=== PATIENT | female | born 1985 | race Caucasian/White ===

== ENCOUNTER 2016-11-03 15:30 | Inpatient (IN) | payer OTHER ==
[~2016-11-03] VITALS: Ht 172.7 cm; Wt 117.8 kg
[2016-11-03] MEDS ORDERED: ONDANSETRON 4 MG VIAL ONE (21:37)
[2016-11-03] MEDS ORDERED: SODIUM CHLORIDE 0.9% 1,000 ML ONE (21:38)
[2016-11-03] MEDS ORDERED: MORPHINE 4 MG/ML SYR ONE (21:38)
[2016-11-04] MEDS ORDERED: DILAUDID 1 MG/ML AMP ONE ×2 (00:34→04:19)
[2016-11-04] MEDS ORDERED: SODIUM CHLORIDE 0.9% 100 ML IV ONE (00:42)
[2016-11-04] MEDS ORDERED: SODIUM CHLORIDE 0.9% 1,000 ML ONE (00:42)
[2016-11-04] MEDS ORDERED: CEFTRIAXONE 1 GM VIAL ONE (00:42)
[2016-11-04] MEDS ORDERED: CEFOXITIN 2,000 MG in SODIUM CHLORIDE 0.9% 100 ML IV ONE (01:00)
[2016-11-04] MEDS ORDERED: PHARMACY TO DOSE GENTAMICIN IV SCH (02:50)
[2016-11-04] MEDS ORDERED: ONDANSETRON 4 MG VIAL IV PUSH PRN (02:50)
[2016-11-04] MEDS ORDERED: AMPICILLIN 2,000 MG in SODIUM CHLORIDE 0.9% 100 ML IV SCH (04:00)
[2016-11-04] MEDS ORDERED: [UNRECOGNIZED DRUG - REMARK] XX SCH (04:30)
[2016-11-04 05:02] VITALS: BP_SYST 128; BP_SYST 130; RESP 18; TEMP 98.7
[2016-11-04 05:04] VITALS: BMI 39.5
[2016-11-04] MEDS ORDERED: GENTAMICIN 430 MG in SODIUM CHLORIDE 0.9% 100 ML IV ONE (05:10)
[2016-11-04] MEDS: LACT RINGERS 1,000 ML IV SCH ×2 (05:35→23:38)
[2016-11-04] MEDS: DILAUDID 1 MG/ML AMP IV PRN ×2 (06:46→10:04)
[2016-11-04 07:21] VITALS: BP_SYST 121; RESP 16; TEMP 99.3
[2016-11-04] MEDS: CLINDAMYCIN 900 MG in DEXTROSE 5% 50 ML IV SCH ×3 (08:28→23:34)
[2016-11-04] MEDS: ACETAMINOPHEN 325 MG TAB PO PRN ×2 (08:32→16:17)
[2016-11-04] MEDS ORDERED: KETOROLAC 30 MG/ML VIAL IV PRN (10:55)
[2016-11-04 11:03] VITALS: BP_SYST 129; RESP 20; TEMP 99.1
[2016-11-04] MEDS ORDERED: MISSING DOSE XX ONE (12:10)
[2016-11-04] MEDS: AMPICILLIN 2,000 MG in SODIUM CHLORIDE 0.9% 100 ML IV SCH ×2 (12:34→18:35)
[2016-11-04] MEDS: KETOROLAC 30 MG/ML VIAL IV PRN ×2 (12:52→19:01)
[2016-11-04 15:22] VITALS: BP_SYST 125; RESP 16; TEMP 99
[2016-11-04 20:02] VITALS: BP_SYST 135; RESP 18; TEMP 99
[2016-11-04 22:43] VITALS: BP_SYST 136; RESP 18; TEMP 100.1
[2016-11-05] VITALS (7 sets, daily range): BP systolic 108–133; RESP 16–20; TEMP 98.3–100.8
[2016-11-05] MEDS: AMPICILLIN 2,000 MG in SODIUM CHLORIDE 0.9% 100 ML IV SCH ×4 (01:03→18:01)
[2016-11-05] MEDS: KETOROLAC 30 MG/ML VIAL IV PRN ×3 (04:48→23:15)
[2016-11-05] MEDS: GENTAMICIN 430 MG in SODIUM CHLORIDE 0.9% 100 ML IV SCH (07:38)
[2016-11-05] MEDS: CLINDAMYCIN 900 MG in DEXTROSE 5% 50 ML IV SCH ×3 (09:19→23:15)
[2016-11-05] MEDS ORDERED: MISSING DOSE XX ONE (15:25)
[2016-11-05] MEDS: DOCUSATE SOD 100 MG CAP PO SCH (19:44)
[2016-11-05] MEDS: SACCHA BOULARDII 250MG CAP PO SCH (19:44)
[2016-11-05] MEDS: LACT RINGERS 1,000 ML IV SCH (20:47)
[2016-11-06] MEDS: AMPICILLIN 2,000 MG in SODIUM CHLORIDE 0.9% 100 ML IV SCH ×3 (00:24→12:00)
[2016-11-06 03:27] VITALS: BP_SYST 131; RESP 16; TEMP 97.9
[2016-11-06] MEDS: GENTAMICIN 430 MG in SODIUM CHLORIDE 0.9% 100 ML IV SCH (06:47)
[2016-11-06 07:06] VITALS: BP_SYST 125; RESP 16; TEMP 98
[2016-11-06] MEDS: CLINDAMYCIN 900 MG in DEXTROSE 5% 50 ML IV SCH (09:48)
[2016-11-06] MEDS: SACCHA BOULARDII 250MG CAP PO SCH (09:48)
[2016-11-06] MEDS: DOCUSATE SOD 100 MG CAP PO SCH (09:48)
[2016-11-06 11:01] VITALS: BP_SYST 132; RESP 20; TEMP 98.1
[2016-11-06 14:10] VITALS: BP_SYST 132; RESP 20; TEMP 98.1
== END 2016-11-06 16:47 | disposition home or self-care (01) | DRG 759 ==
LOC: ENRESERVDT → ENRESERVTM → ER 15:30 → EMR 11-04 02:03 → ENPENDDIS 11-04 02:03 → 4NT 11-04 04:41
PROVIDERS: ADMIT Obstetrics & Gynecology Gynecology; ATTEND Obstetrics & Gynecology Gynecology
CPT/HCPCS: 36415; 74176; 76830; 80053; 80170; 81001; 82565; 83690; 84520; 84703; 85025; 96361; 96365; 96375; 96376